=== PATIENT | male | born 1980 | race Caucasian/White ===

== ENCOUNTER 2025-09-29 08:16 | Emergency (ER) | payer SELFPAY ==
[~2025-09-29] VITALS: Ht 185.4 cm; Wt 99.1 kg
[2025-09-29] MEDS: ALBUTEROL SULFATE 2.5 MG/0.5 ML INH CONCENTRATE NEB SOLN INH ONE (08:54)
[2025-09-29 08:56] LABS: ABG BASE EXCESS -0.8 (-2.0-2.0); ABG HCO3 23.4 MMOL/L (22.0-26.0); ABG O2 SATURATION 96.6 % (95.0-99.0); ABG PARTIAL PRESSURE CO2 37.5 mmHg (35.0-45.0); ABG PARTIAL PRESSURE O2 88.4 mmHg (75.0-100.0); ABG STANDARD HCO3 23.8 MMOL/L. (22.0-26.0); ABG TOTAL CO2 24.5 MMOL/L (22.0-29.0); ABG pH (ARTERIAL) 7.413 UNITS (7.350-7.450)
[2025-09-29 09:03] LABS: BASO # 0.1 10^3/uL (0.0-0.2); BASO % 0.4 % (0.0-1.0); EOS # 0.1 10^3/uL (0.0-0.5); EOS % 1.1 % (0.0-3.0); LYMPH # 1.9 10^3/uL (1.5-5.0); LYMPH % 15.1 % (24.0-44.0); MONO # 1.1 10^3/uL (0.0-0.8); MONO % 9.0 % (2.0-8.0); NEUTROPHILS # 9.2 10^3/uL (1.5-8.5); NEUTROPHILS % 74.1 % (36.0-66.0); PLATELET COUNT, AUTOMATED 300 10^3/uL (150-450)
[2025-09-29] MEDS: TETANUS/DIPHTH/ACEL. PERTUSSIS 0.5 ML SYR IM.IMMUN ONE (09:07)
[2025-09-29] MEDS: ONDANSETRON 4MG/2ML VIAL IV ONE (09:07)
[2025-09-29] MEDS: MORPHINE 4 MG/ML 1 ML VIAL IV PRN (09:07)
[2025-09-29] MEDS: LR 1,000 ML IV SCH (09:07)
[2025-09-29 09:19] LABS: INR 0.88
[2025-09-29 09:24] LABS: CK-MB VALUE MASS 2.5 NG/ML (<3.6)
[2025-09-29 09:25] LABS: ETHYL ALCOHOL (ETHANOL) < 0.003 % (0.000-0.010); MYOGLOBIN 256.0 NG/ML (<110)
[2025-09-29 09:27] LABS: ALT/SGPT 21 U/L (7.0-40); AST/SGOT 24 U/L (<34); C REACTIVE PROTEIN QUANTITATIV < 0.50 MG/DL (<1.0); CALCIUM LEVEL 8.5 MG/DL (8.5-10.1); CARBON DIOXIDE LEVEL 24 MMOL/L (20-31); CHLORIDE LEVEL 107 MMOL/L (98-107); CPK CREATINE PHOSPHOKINASE 187 U/L (46-171); CREATININE FOR GFR 0.95 MG/DL (0.70-1.30); GLOMERULAR FILTRATION RATE > 90.0 (>60); MAGNESIUM LEVEL 2.0 MG/DL (1.8-2.4); MB/CK RELATIVE INDEX 1.33 (< OR =4); PHOSPHORUS LEVEL 2.9 MG/DL (2.5-4.9); POTASSIUM SERUM 4.4 MMOL/L (3.5-5.1); SODIUM LEVEL 140 MMOL/L (136-145)
[2025-09-29 10:15] VITALS: TEMP 96.8
[2025-09-29 11:15] VITALS: BP 151/84
[2025-09-29 11:16] VITALS: O2SAT 95
== END 2025-09-29 11:43 | disposition left against medical advice (07) ==
LOC: EDBD 08:16 → M ED 08:16
DX: T22.212A Burn of second degree of left forearm, initial encounter (principal); T22.211A Burn of second degree of right forearm, initial encounter; J70.5 Respiratory conditions due to smoke inhalation; F10.10 Alcohol abuse, uncomplicated; X00.0XXA Exposure to flames in uncontrolled fire in building or structure, initial encounter; Y92.009 Unspecified place in unspecified non-institutional (private) residence as the place of occurrence of the external cause; Y93.89 Activity, other specified; Y99.9 Unspecified external cause status
CPT/HCPCS: 36600; 71045; 80053; 82077; 82375; 82550; 82553; 82803; 83605; 83735; 83874; 84100; 84484; 85025; 85610; 85730; 86140; 86850; 86900; 86901; 90471; 90715; 93005; 93041; 94640; 96365; 96366; 96375; 96376; 99285; J2405